=== PATIENT | male | born 1960 | race Caucasian/White ===

== ENCOUNTER 2018-02-18 10:35 | Emergency (ER) | payer OTHER ==
[2018-02-18] MEDS ORDERED: METHOCARBAMOL 750 MG TABLET PO ONE (11:20)
--- NOTE | 2018-02-18 11:24 | ER Document Report ---
ED General - General Chief Complaint: Back Pain Stated Complaint: BACK PAIN Time Seen by Provider: 02/18/18 11:10 Notes: 57-year-old male presents emergency department complaining of an injury to his low back. States he was walking around late last night early this morning and he fell and hit his low back on the corner of her bed. States that it hurt a little bit but did not have any swelling initially, states that after he slept on her all night long he developed a significant amount of swelling and small amount of bleeding to his low back on the left-hand side. Complains of increased pain when he lays flat or he uses the muscles in his back. Denies numbness, tingling, weakness. Denies using any blood thinners. The pain is a 3 -4 out of 5. He did try taking Aleve for this but it did not help. Patient is most concerned by the swelling. TRAVEL OUTSIDE OF THE [place] IN LAST 30 DAYS: No - Related Data Allergies/Adverse Reactions: doxycycline [From Vibramycin] Allergy (Verified 02/18/18 11:07) Past Medical History - General Information source: Patient - Social History Smoking Status: Never Smoker Chew tobacco use (# tins/day): No Frequency of alcohol use: Occasional Drug Abuse: None Family History: Reviewed & Not Pertinent Patient has suicidal ideation: No Patient has homicidal ideation: No Renal/ Medical History: Denies: Hx Peritoneal Dialysis Musculoskeltal Medical History: Reports Hx Gout Review of Systems - Review of Systems Constitutional: No symptoms reported Cardiovascular: No symptoms reported Respiratory: No symptoms reported Gastrointestinal: No symptoms reported Musculoskeletal: See HPI, Back pain Skin: See HPI - Small bleeding and hematoma. Hematologic/Lymphatic: No symptoms reported. denies: Blood clots, Easy bleeding , Easy bruising Neurological/Psychological: No symptoms reported Physical Exam - Vital signs Vitals: Temp Pulse Resp BP Pulse Ox 98.0 F 82 16 185/108 H 98 02/18/18 10:39 02/18/18 10:39 02/18/18 10:39 02/18/18 10:39 02/18/18 10:39 Interpretation: Hypertensive - General General appearance: Appears well, Alert In distress: Mild - HEENT Head: Normocephalic, Atraumatic Eyes: Normal Pupils: PERRL Mucous membranes: Moist - Respiratory Respiratory status: No respiratory distress - Cardiovascular Normal capillary refill: Yes - Abdominal Distension: No distension - Back Notes: Large hematoma to the left side of the low back near the thoracolumbar junction going down to the level of the lumbosacral junction, no fluctuance, tender to palpation, superficial abrasions. Patient is able to flex and extend and rotate from side to side without difficulty although it does cause pain. There is superficial bruising as well. Difficult to determine midline bony tenderness palpation is the hematoma does cross midline. Course - Re-evaluation Re-evalutation: 02/18/18 12:22 Patient treated with muscle relaxers and had x-rays performed. X-rays show spondylosis without any acute fracture or dislocation. Patient counseled on using anti-inflammatories, he already has indomethacin, ibuprofen and Aleve at home. Patient is counseled to use 1 of these not all of them. Will also be prescribed Robaxin and knows to use acetaminophen at home as well. Will use ice for the first 24 hours then switch to heat. Patient will return for any new or concerning symptoms including numbness, tingling, weakness. - Vital Signs Vital signs: Temp Pulse Resp BP Pulse Ox 98.0 F 82 16 185/108 H 98 02/18/18 10:39 02/18/18 10:39 02/18/18 10:39 02/18/18 10:39 02/18/18 10:39 Discharge - Discharge Clinical Impression: Lumbar muscle hematoma Qualifiers: Encounter type: initial encounter Qualified Code(s): S30.0XXA - Contusion of lower back and pelvis, initial encounter Low back pain Qualifiers: Chronicity: acute Back pain laterality: left Sciatica presence: without sciatica Qualified Code(s): M54.5 - Low back pain Hypertension Qualifiers: Hypertension type: unspecified Qualified Code(s): I10 - Essential (primary) hypertension Condition: Stable Disposition: HOME, SELF-CARE Additional Instructions: When he fell he developed bleeding in the muscles in her back. This may get bigger for the next 24 hours. Please use ice on the affected area for 15 minutes out of every hour for the next 24 hours, you may then switch to heat with the same frequency. This hematoma will take a long time to resolve, up to several weeks. If it gets significantly bigger after the next 24 hours, develops a large amount of redness or exquisite tenderness to palpation please return to the emergency department. Please also return if you develop any fevers. I have prescribed Robaxin which is a muscle relaxer. Please take it as directed when needed, you do not have to finish the prescription if your pain goes away. I would like you to rest your back as much as possible. Return for numbness, tingling or weakness. You may take either indomethacin or ibuprofen or Aleve, do not take them all at the same time. You may also take acetaminophen as directed on the bottle for pain in addition to the muscle relaxer. Prescriptions: Methocarbamol [Robaxin 750 mg Tablet] 750 mg PO ASDIR PRN #40 tablet PRN Reason: Forms: Elevated Blood Pressure
--- NOTE | 2018-02-18 12:19 | RADIOLOGY REPORT (SQ) ---
EXAM DESCRIPTION: L SPINE WHOLE COMPLETED DATE/TIME: 02/18/2018 12:11 pm REASON FOR STUDY: hit lumbar spine COMPARISON: None. NUMBER OF VIEWS: Five views including obliques. TECHNIQUE: AP, lateral, oblique, and sacral radiographic images acquired of the lumbar spine. LIMITATIONS: None. FINDINGS: MINERALIZATION: Normal. SEGMENTATION: Normal. No transitional anatomy. ALIGNMENT: Normal. VERTEBRAE: Maintained height. No fracture or worrisome bone lesion. DISCS: Multilevel disc space narrowing with osteophytes. POSTERIOR ELEMENTS: Pedicles and facets are intact. No pars defect or posterior arch defects. Facet arthropathy is present. HARDWARE: None in the spine. PARASPINAL SOFT TISSUES: Normal. PELVIS: Intact as visualized. No fractures or worrisome bone lesions. SI joints intact. OTHER: No other significant finding. IMPRESSION: SPONDYLOSIS WITHOUT BONE LESION OR FRACTURE. TECHNICAL DOCUMENTATION: JOB ID: [id number] [employer]- All Rights Reserved Reading location - IP/workstation name: [email or web address]
[2018-02-18 12:41] VITALS: BP 174/92
== END 2018-02-18 12:55 | disposition home or self-care (01) ==
LOC: ER 10:35
DX: S30.0XXA Contusion of lower back and pelvis, initial encounter (principal); W19.XXXA Unspecified fall, initial encounter; M47.9 Spondylosis, unspecified; I10 Essential (primary) hypertension; Z88.1 Allergy status to other antibiotic agents
CPT/HCPCS: 99283; 72110; J3490

== ENCOUNTER → 2018-07-18 | Outpatient (CLI) | payer OTHER ==
[2018-07-18 14:10] LABS: ABSOLUTE EOSINOPHILS # (AUTO) 0.2 10^3/uL (0.0-0.6); ABSOLUTE LYMPHOCYTES (AUTO) 2.3 10^3/uL (0.5-4.7); ABSOLUTE MONOCYTES (AUTO) 0.5 10^3/uL (0.1-1.4); ABSOLUTE NEUT (AUTO) 3.7 10^3/uL (1.7-8.2); BASOPHILS % (AUTO) 0.5 % (0-2); EOSINOPHILS % (AUTO) 2.6 % (0-6); HEMATOCRIT 45.3 % (37.9-51.0); HEMOGLOBIN 16.3 g/dL (13.5-17.0); LYMPHOCYTES % (AUTO) 34.6 % (13-45); MEAN CORPUSCULAR HEMOGLOBIN 35.1 pg (27.0-33.4); MEAN CORPUSCULAR VOLUME 98 fl (80-97); MONOCYTES % (AUTO) 7.3 % (3-13); PLATELET COUNT 164 10^3/uL (150-450); RED BLOOD COUNT 4.65 10^6/uL (4.35-5.55); RED CELL DISTRIBUTION WIDTH 12.7 % (11.5-14.0); TOTAL CELLS COUNTED % (AUTO) 100 %; WHITE BLOOD COUNT 6.7 10^3/uL (4.0-10.5)
[2018-07-18 14:45] LABS: ALANINE AMINOTRANSFERASE 101 U/L (21-72); ALBUMIN 4.7 g/dL (3.5-5.0); ALKALINE PHOSPHATASE 93 U/L (38-126); ANION GAP 13 (5-19); ASPARTATE AMINO TRANSFERASE 71 U/L (17-59); BILIRUBIN,DIRECT 0.4 mg/dL (0.0-0.4); BILIRUBIN,TOTAL 1.1 mg/dL (0.2-1.3); BLOOD UREA NITROGEN 22 mg/dL (7-20); C-REACTIVE PROTEIN 7.9 mg/L (<10.0); CALCIUM 10.3 mg/dL (8.4-10.2); CARBON DIOXIDE 22 mmol/L (22-30); CHLORIDE 104 mmol/L (98-107); GLUCOSE 95 mg/dL (75-110); POTASSIUM 4.8 mmol/L (3.6-5.0); SODIUM 139.4 mmol/L (137-145); TOTAL PROTEIN 8.1 g/dL (6.3-8.2)
[2018-07-18 14:47] LABS: ERYTHROCYTE SEDIMENTATION RATE 11 mm/hr (0-20)
== END ==
LOC: OD 12:44
PROVIDERS: ATTEND Surgery
DX: L02.212 Cutaneous abscess of back [any part, except buttock and flank] (principal)
CPT/HCPCS: 36415; 80053; 85025; 85652; 86140